=== PATIENT | male | born 1995 | race Caucasian/White ===

== ENCOUNTER 2018-02-09 13:17 | Emergency (ER) | payer OTHER ==
[~2018-02-09] VITALS: Ht 177.8 cm; Wt 97.5 kg
--- NOTE | 2018-02-09 13:26 | ED UPPER/LOWER EXTREMITY COMPL ---
History of Present Illness General Chief Complaint: Suture Removal/Wound Recheck Stated Complaint: SUTURE REMOVAL Source: patient Exam Limitations: no limitations Vital Signs & Intake/Output Vital Signs & Intake/Output Vital Signs Date Time Temp Pulse Resp B/P B/P Pulse O2 O2 Flow FiO2 Mean Ox Delivery Rate 02/09 1333 98.4 78 16 126/72 99 Room Air Allergies Coded Allergies: No Known Allergies (02/02/18) Triage Nurses Notes Reviewed? yes Onset: Abrupt Duration: better Timing: recent history Severity: mild Severity Numbers: 1 HPI: Patient is a 22-year-old male who presents emergency room with concerns of a wound recheck and suture removal to the right neck and digit index finger and which he accidentally cut it with a binder and box builder one week ago where he had #3 sutures placed Denies any signs of symptoms of infection. (Teodoro Cadena) Past History Travel History Traveled to [place] past 21 day No Medical History Any Pertinent Medical History? none Tetanus Vaccine: 02/05/18 Surgical History Surgical History: non-contributory Psychosocial History What is your primary language Green[place]ic Family History Hx Contributory? No (Teodoro Cadena) Review of Systems Review of Systems Constitutional: Reports: no symptoms. EENTM: Reports: no symptoms. Respiratory: Reports: no symptoms. Cardiovascular: Reports: no symptoms. Gastrointestinal/Abdominal: Reports: no symptoms. Genitourinary: Reports: no symptoms. Musculoskeletal: Reports: see HPI. Skin: Reports: see HPI. Neurological/Psychological: Reports: no symptoms. Hematologic/Endocrine: Reports: no symptoms. Immunological: Reports: no symptoms. All Other Systems: Reviewed and Negative (Teodoor Cadena) Physical Exam Physical Exam General Appearance: no apparent distress, alert, comfortable Head: atraumatic Eyes: Bilateral: normal appearance. Ears, Nose, Throat: hearing grossly normal Neck: normal inspection Cardiovascular/Respiratory: no respiratory distress Peripheral Pulses: 2+ radial (R) Neurologic/Tendon: normal sensation, normal motor functions, normal tendon functions, responds to pain, no evidence tendon injury Skin: intact, normal color, warm/dry Diagram Hands Front 1) 1 cm well-healing laceration with #3 intact sutures no signs of infection full active range of motion (Teodoro Cadena) Progress Differential Diagnosis: arterial insufficiency, compartment syndrome, contusion, dislocation, DVT, fracture, gout, septic arthritis, sprain, tendon injury Plan of Care: #3 sutures were removed without complications patient tolerated well bacitracin bandage is applied no signs of infection (Teodoro Cadena) Departure Departure Disposition: HOME OR SELF CARE Condition: Stable Clinical Impression Primary Impression: Visit for suture removal Secondary Impressions: Visit for wound check Referrals: Patient Has No Primary Care Dr (PCP/Family) Additional Instructions: As discussed after TODAY LEAVE the area open to improve healing. If you note signs infection return to emergency room, keep area dry and clean YOU can Departure Forms: Customer Survey General Discharge Information (Teodoro Cadena) PA/LAG SCREWER Co-Sign Statement Statement: ED Attending supervision documentation- [] I saw and evaluated the patient. I have also reviewed all the pertinent lab results and diagnostic results. I agree with the findings and the plan of care as documented in the PA's/LAG SCREWER's documentation. [X] I have reviewed the ED Record and agree with the PA's/LAG SCREWER's documentation. [] Additions or exceptions (if any) to the PAs/LAG SCREWER's note and plan are summarized below: [] (Emerson ROCK,Eric Zabala)
[2018-02-09 13:33] VITALS: BP 126/72
== END 2018-02-09 13:43 ==
LOC: ERH 13:17
DX: Z48.02 Encounter for removal of sutures (principal)